=== PATIENT | female | born 1980 | race Asian ===

== ENCOUNTER 2024-10-10 11:45 | Inpatient (IN) | payer MEDICAID, SELFPAY ==
[2024-10-10] VITALS (14 sets, daily range): BP systolic 117–145; BP diastolic 73–92; PULSE 78–93; RESP 13–19; TEMP 36.2–38.1; O2SAT 97–100; BMI 28.9
--- NOTE | 2024-10-10 12:26 | PD.EDABDPN ---
ED Abdominal Pain RME/HPI General Chief Complaint: Abdominal Pain Stated complaint: SENT BY PMD R/O ACUTE CHOLECYSTITIS XTUES Time seen by provider: 10/10/24 12:16 Arrival date/time: 10/10/24 11:45 RME / HPI RME / HPI narrative: 43-year-old female patient with no significant past medical history except for gallstone, came in by private vehicle from the clinic of Dr. Sibley regarding right upper quadrant pain. Patient had recurrence of right upper quadrant pain for the last 2 days, associated with nausea. Denies any fever. Patient had ERCP done 2 months ago. Patient denies any fever. Related Data Allergies Allergy/AdvReac Type Severity Reaction Status Date / Time No Known Allergies Allergy Verified 10/10/24 11:48 Review of Systems Review of Systems Narrative Review of Systems: Review of system reviewed and within normal limits except mentioned in HPI ED Exam Narrative Physical exam: VITAL SIGNS: Reviewed. GENERAL APPEARANCE: Alert and interactive, follows commands, no acute distress, HEAD AND FACE: Non-traumatic. ENT: PERRL, pink conjunctivitis, eyelid no trauma, Mucous membrane moist. NECK: Supple, nontender, no nuchal rigidity. CHEST: No tenderness, no crepitus, no paradoxical movement, no retractions. LUNGS: Clear, well ventilated, symmetric, no rales, no wheezing, no ronchi, no stridor, good breath sounds bilaterally. HEART: Regular rate, regular rhythm, no murmur, no gallops. ABDOMEN: Soft, positive bowel sounds, nondistended, no guarding, right upper quadrant tenderness no rebound, no masses, RECTAL: Deferred. GENITAL: Deferred. NEUROLOGICAL: Gross motor function intact sensory function intact, Appropriate for age. MUSCULOSKELETAL: low back nontender, full range of motion. EXTREMITIES: Nontender, full range of motion. SKIN: Color pink, dry, no rash, no lacerations, no abrasions, no contusions. LYMPHATICS: Deferred. Course Quality Measures none Orders Category Date Time Status COVID-19 Screening Questionnaire NOW Care 10/10/24 12:30 Active Decision to Admit X1 Care 10/10/24 12:30 Completed Transfuse,blood/blood products ONCE Care 10/10/24 13:39 Active US gall bladder Stat Exams 10/10/24 12:29 Completed CBC [CBC] Stat Lab 10/10/24 13:09 Completed CMP [Comprehensive Metabolic Panel] Stat Lab 10/10/24 13:09 Completed HCG Qualitative,Urine Stat Lab 10/10/24 12:31 Ordered PT [Prothrombin Time with INR] Stat Lab 10/10/24 13:09 Completed PTT [Partial Thromboplastin Time] Stat Lab 10/10/24 13:09 Completed Type and Screen Stat Lab 10/10/24 13:38 Completed UA, C/S IF [Urinalysis, C/S if Indicated] Stat Lab 10/10/24 12:31 Ordered prbc [Red Blood Cells] Stat Lab 10/10/24 13:38 Completed Bupivacaine Mpf/Epi 0.5% [Sensorcaine-Mpf Inj 0.5% w/ Med 10/10/24 14:15 Discontinued Epi] 30 ml .ROUTE .STK-MED ONE Morphine Inj Med 10/10/24 12:29 Discontinued 4 mg IVP X1 ONE Ondansetron Inj [Zofran Inj] Med 10/10/24 12:29 Discontinued 4 mg IV X1 ONE Piper/Tazo 3.375 gm Premix [Zosyn] Med 10/10/24 12:30 Discontinued 3.375 gm in 50 ml IV X1 Vital Signs Vital signs: Vital Signs Temperature 99.3 F 10/10/24 12:19 Pulse Rate 86 10/10/24 12:19 Respiratory Rate 16 10/10/24 12:19 Blood Pressure 144/92 H 10/10/24 12:19 Pulse Oximetry (%) 100 10/10/24 12:19 Oxygen Delivery Method Room Air 10/10/24 12:19 Abdominal Pain MDM MDM Narrative MDM Narrative:: 43-year-old female patient with no significant past medical history except for gallstone, came in by private vehicle from the clinic of Dr. Sibley regarding right upper quadrant pain. Patient had recurrence of right upper quadrant pain for the last 2 days, associated with nausea. Denies any fever. Patient had ERCP done 2 months ago. Patient denies any fever. Patient was noted to have hemoglobin of 6.7 hematocrit of 22.8 CMP unremarkable total bili is normal. Ultrasound of the gallbladder showed acute calculus cholecystitis Patient was admitted by Dr. Sibley Patient data External records reviewed:: None Clinical information provided by:: patient Social determinants that could affect healthcare access:: none Patient has the following chronic illnesses:: None How is presenting disease/condition affected by chronic disease/condition?: no chronic disease Evaluation data The following diagnostics were reviewed and interpreted by me:: lab results and radiology exam(s) Lab and/or radiology exams considered but not ordered:: None Interpretation Summary: See result MDM Medications / Prescriptions Medications or Prescriptions considered but not ordered:: Left Medication administrations:: Medication Administration History Sodium Chloride (Ns) 1,000 mls @ 100 mls/hr IV .Q10H CHANG Stop: 11/09/24 16:14 Last Admin: 10/10/24 18:12 Dose: 100 mls/hr Documented By: IVA Piperacillin/Tazobactam/Dextrose (Zosyn) 3.375 gm in 50 mls @ 12.5 mls/hr IV Q8HR CHANG Stop: 10/17/24 21:59 Last Admin: 10/10/24 22:41 Dose: 12.5 mls/hr Documented By: Ketorolac Tromethamine (Ketorolac Inj 30 Mg/Ml Vial) 30 mg IVP Q6HR PRN PRN Reason: PAIN SCALE 4-6 (Moderate Stop: 10/15/24 16:08 Last Admin: 10/10/24 23:08 Dose: 30 mg Documented By: Ondansetron HCl (Ondansetron Inj 2 Mg/Ml Inj 2 Ml) 4 mg IV Q4HR PRN; Protocol PRN Reason: Nausea Stop: 11/09/24 16:08 Discontinued Medications Bupivacaine HCl/Epinephrine Bitart (Bupivacaine Mpf/Epi 0.5% 30 Ml Vial 1:200,000) Confirm Administered Dose 30 ml .ROUTE .STK-MED ONE Stop: 10/10/24 14:16 Piperacillin/Tazobactam/Dextrose (Zosyn) 3.375 gm in 50 mls @ 100 mls/hr IV X1 ONE Stop: 10/10/24 12:59 Last Infusion: 10/10/24 14:16 Dose: Infused Documented By: Admin: 10/10/24 13:41 Dose: 100 mls/hr Documented By: IVA Morphine Sulfate (Morphine Sulf Inj 10 Mg/Ml Vial) 4 mg IVP X1 ONE Stop: 10/10/24 12:30 Last Admin: 10/10/24 13:40 Dose: 4 mg Documented By: IVA Ondansetron HCl (Ondansetron Inj 2 Mg/Ml Inj 2 Ml) 4 mg IV X1 ONE; Protocol Stop: 10/10/24 12:30 Last Admin: 10/10/24 13:40 Dose: 4 mg Documented By: IV Zosyn Toradol Consultations Consultation(s) initiated? (list below): No Diagnosis Differential diagnosis abdominal pain: abdominal pain and pancreatitis Most likely diagnosis given after review of the tests above:: Acute calculus cholecystitis Admission Indicated Admission indicated?: indicated Admission Request Was there a request for admission?: Yes Admission Attestation Admission request attestation: Dr. Sibley agrees to accept the patient for admission. Disposition Plan Disposition Plan: Admit Discharge Plan Plan Patient Disposition: Admit Acute Care w/in Hospital Problem List Clinical Impression: Acute calculous cholecystitis, Anemia
--- NOTE | 2024-10-10 12:29 | XR_ITS ---
Examination: Abdomen sonogram, Limited Date and time of exam: October 10, 2024 1315 hours INDICATIONS: Epigastric pain beginning 3 days ago Technique: Real-time allen scale transabdominal sonographic images of the upper abdomen obtained. Findings: Multiple gallstones Gallbladder wall 0.4 cm with edema Common bile duct 0.7 cm Pancreatic head 2.3 cm Liver 14.5 cm no focal liver lesions Normal hepatopedal portal venous oh Patent IVC IMPRESSION: Acute calculus cholecystitis Enlarged common bile duct 0.7 cm, consider MRCP follow-up to exclude common bile duct stones or stricture
[2024-10-10 13:28] LABS: Basophils % (Auto) 0 % (0-2.5); Eosinophils # (Auto) 0.1 Thou/mm3 (0.0-0.5); Eosinophils % (Auto) 1 % (0-10); Lymphocytes # (Auto) 0.9 Thou/mm3 (1.0-4.8); Lymphocytes % (Auto) 9 % (10-50); Mean Corpuscular Volume 72 fL (80-100); Monocytes # (Auto) 0.8 Thou/mm3 (0.0-0.8); Neutrophils # (Auto) 7.7 Thou/mm3 (1.8-7.7); Neutrophils % (Auto) 80 % (37-80); Nucleated Red Blood Cell % 0 /100 WBC (0); White Blood Count 9.6 Thou/mm3 (3.6-11.0)
[2024-10-10 13:30] LABS: Hematocrit 22.7 % (36.0-46.0); Immature Granulocytes % (Auto) 1 % (0-0); Mean Corpuscular HGB Conc 29.1 g/dl (31.0-37.0); Mean Corpuscular Hemoglobin 20.9 pg (25.0-35.0); Monocytes % (Auto) 8 % (0-12); Platelet Count 216 Thou/mm3 (140-440); RDW Standard Deviation 48.2 fL (36.4-46.3); Red Blood Count 3.16 Miln/mm3 (4.00-5.20)
[2024-10-10 13:31] LABS: Hemoglobin 6.6 g/dL (12.0-16.0)
[2024-10-10] MEDS: ONDANSETRON INJ 2 MG/ML INJ 2 ML 4 MG IV (13:40)
[2024-10-10] MEDS: MORPHINE SULF INJ 10 MG/ML VIAL 4 MG IVP (13:40)
[2024-10-10 13:41] LABS: Alanine Aminotransferase 8 U/L (10-49); Albumin/Globulin Ratio 1.4 (1.2-2.2); Alkaline Phosphatase 57 U/L (46-116); Anion Gap 6 (7-16); Aspartate Amino Transferase 12 U/L (0-34); BUN/Creatinine Ratio 10 Ratio (12-20); Bilirubin,Total 1.2 mg/dL (0.3-1.2); Blood Urea Nitrogen 7 mg/dL (9-23); Calcium 8.3 mg/dL (8.3-10.6); Calcium (Corrected) 8.3 mg/dL (8.5-10.1); Carbon Dioxide 23.6 mMol/L (20.0-31.0); Chloride 104 mMol/L (98-107); Creatinine (Component) 0.7 mg/dL (0.6-1.3); Estimated Creatinine Clearance 90.4 mL/min (>60); Globulin 2.8 gm/dL (2.3-3.5); Glucose 99 mg/dL (74-106); Osmolality,Calculated 266 (275-295); Potassium 3.4 mMol/L (3.4-5.1); Sodium 134 mMol/L (136-145); Total Protein 6.8 gm/dL (5.7-8.2); eGFR > 60 See Note
[2024-10-10] MEDS: PIPER/TAZO 3.375 GM PREMIX 3.375 GM/50 ML BAG IV ×2 (13:41→22:41)
[2024-10-10 13:51] LABS: INR 1.1 (0.9-1.3); Partial Thromboplastin Time 27.8 Seconds (22.0-36.0); Prothrombin Time 11.8 Seconds (9.0-12.2)
--- NOTE | 2024-10-10 16:12 | PD.SURPROG ---
Documentation for date of: 10/10/24 Subjective Subjective Narrative: The patient was admitted through the emergency room because of acute cholecystitis. However while waiting in the emergency room she was found to have a hemoglobin of 6.6 g. Exam Vital Signs Temp Pulse Resp BP Pulse Ox O2 Del Method 99.0 F 80 16 117/73 100 Room Air 10/10/24 14:13 10/10/24 14:13 10/10/24 14:13 10/10/24 14:13 10/10/24 14:13 10/10/24 14:13 Assessment & Plan Assessment Additional comments: Impression: Acute cholecystitis with cholelithiasis Severe anemia Plan Plan: Patient will be admitted as an inpatient to the hospital and give 2 units of packed cells tonight. We shall then proceed with a laparoscopic cholecystectomy tomorrow.
[2024-10-10 16:48] LABS: Basophils % (Auto) 0 % (0-2.5); Eosinophils # (Auto) 0.1 Thou/mm3 (0.0-0.5); Eosinophils % (Auto) 1 % (0-10); Hematocrit 22.8 % (36.0-46.0); Immature Granulocytes % (Auto) 0 % (0-0); Immature Granulocytes Auto 0.02 Thou/mm3 (0.00-0.00); Lymphocytes # (Auto) 0.9 Thou/mm3 (1.0-4.8); Lymphocytes % (Auto) 10 % (10-50); Mean Corpuscular HGB Conc 29.4 g/dl (31.0-37.0); Mean Corpuscular Hemoglobin 20.7 pg (25.0-35.0); Mean Corpuscular Volume 71 fL (80-100); Monocytes # (Auto) 0.6 Thou/mm3 (0.0-0.8); Monocytes % (Auto) 7 % (0-12); Neutrophils # (Auto) 7.1 Thou/mm3 (1.8-7.7); Neutrophils % (Auto) 81 % (37-80); Nucleated Red Blood Cell % 0 /100 WBC (0); Platelet Count 217 Thou/mm3 (140-440); RDW Standard Deviation 46.9 fL (36.4-46.3); Red Blood Count 3.23 Miln/mm3 (4.00-5.20); White Blood Count 8.8 Thou/mm3 (3.6-11.0)
[2024-10-10 16:51] LABS: Hemoglobin 6.7 g/dL (12.0-16.0)
[2024-10-10] MEDS: SODIUM CHLORIDE 0.9% 1000 ML 1,000 ML 100 ML IV (18:12)
--- NOTE | 2024-10-10 18:55 | PC.NURSE ---
Pt has not arrived on the floor yet. Hand off report given to Page DEWITT.
--- NOTE | 2024-10-10 19:26 | PC.NURSE ---
Received phone report from ER Nurse Karen at 2320. Per ER Nurse, pt is ordered to have 2 units of PRBCs. Patient is currently recieving her first unit and will need the second unit when she arrives on the floor.
[2024-10-10] MEDS: KETOROLAC INJ 30 MG/ML VIAL IVP (23:08)
[2024-10-11] VITALS (16 sets, daily range): BP systolic 96–127; BP diastolic 60–82; PULSE 60–79; RESP 12–97; TEMP 36.1–37.2; O2SAT 94–100
[2024-10-11] MEDS: PIPER/TAZO 3.375 GM PREMIX 3.375 GM/50 ML BAG IV ×3 (05:28→21:29)
[2024-10-11 06:09] LABS: Collection Type, Urine Clean Catch
[2024-10-11 06:16] LABS: HCG Qualitative,Urine Negative
[2024-10-11 06:17] LABS: Basophils % (Auto) 0 % (0-2.5); Eosinophils # (Auto) 0.2 Thou/mm3 (0.0-0.5); Eosinophils % (Auto) 1 % (0-10); Hematocrit 30.2 % (36.0-46.0); Hemoglobin 9.5 g/dL (12.0-16.0); Immature Granulocytes % (Auto) 0 % (0-0); Immature Granulocytes Auto 0.04 Thou/mm3 (0.00-0.00); Lymphocytes # (Auto) 1.3 Thou/mm3 (1.0-4.8); Lymphocytes % (Auto) 11 % (10-50); Mean Corpuscular HGB Conc 31.5 g/dl (31.0-37.0); Mean Corpuscular Hemoglobin 23.3 pg (25.0-35.0); Mean Corpuscular Volume 74 fL (80-100); Monocytes # (Auto) 0.8 Thou/mm3 (0.0-0.8); Monocytes % (Auto) 7 % (0-12); Neutrophils # (Auto) 9.4 Thou/mm3 (1.8-7.7); Neutrophils % (Auto) 81 % (37-80); Nucleated Red Blood Cell % 0 /100 WBC (0); Platelet Count 217 Thou/mm3 (140-440); RDW Standard Deviation 50.5 fL (36.4-46.3); Red Blood Count 4.07 Miln/mm3 (4.00-5.20); White Blood Count 11.7 Thou/mm3 (3.6-11.0)
[2024-10-11 06:18] LABS: Bilirubin,Urine Negative (Negative); Blood,Urine Negative (Negative); Clarity,Urine Clear (Clear/Hazy); Color,Urine Lt-Yellow (Lt Yel-Yel); Culture Indicated,Urine Not Indicated; Glucose, Urine Negative (Negative); Ketones,Urine Negative (Negative); Leukocyte Esterase,Urine Negative (Negative); Nitrite,Urine Negative (Negative); PH,Urine 6.5 (5.0-7.0); Protein,Urine Negative (Neg - Trace); RBC,Urine 1 /hpf (0-3); Specific Gravity,Urine 1.008 (1.001-1.035); Squamous Epithelial Cell,Urine 2 /hpf (0-5); Urobilinogen,Urine Negative mg/dL (0.0-1.0); WBC,Urine 1 /hpf (0-5)
[2024-10-11] MEDS: SODIUM CHLORIDE 0.9% 1000 ML 1,000 ML 100 ML IV ×2 (08:56→23:48)
--- NOTE | 2024-10-11 09:57 | PD.SURPROG ---
Documentation for date of: 10/11/24 Subjective Subjective Narrative: Patient had an episode of pain last night requiring Toradol. She also had a temperature elevation Exam Vital Signs Temp Pulse Resp BP Pulse Ox O2 Del Method 98.5 F 78 17 127/82 96 Room Air 10/11/24 08:00 10/11/24 08:00 10/11/24 08:00 10/11/24 08:00 10/11/24 08:00 10/11/24 08:00 At present her vital signs are normal Routine Abdominal Exam Comments: Abdominal examination shows right upper quadrant tenderness Results Results: Laboratory Laboratory Narrative: Posttransfusion hemoglobin is 9.5. Her WBC is going up to 11.7 Assessment & Plan Assessment Additional comments: Impression: Acute calculus cholecystitis Plan Plan: Since the anemia is corrected we shall proceed with laparoscopic cholecystectomy today
--- NOTE | 2024-10-11 13:30 | SUR.PHASEI ---
pt arrived to PACU via gurney with oral airway present, breathing unlabored, dressing to abdomen clean, dry, and intact, report from Chidi DEWITT and Brad SRNA
--- NOTE | 2024-10-11 13:37 | PD.SUROPNT ---
Date of Procedure 10/11/24 Pre Op Diagnosis Acute cholecystitis with cholelithiasis Post Op Diagnosis Same with stone impacted at the neck of the gallbladder causing hydrops Procedure Laparoscopic cholecystectomy Findings Patient was found to have extensive inflammation of the gallbladder covered with omentum the gallbladder was at least 3-4 times the size of it because of the distention. Procedure Description After endotracheal anesthesia was given the patient was placed in supine position and the abdomen was prepped with chloroprep solution and draped in a sterile manner. After time out was performed I injected a few cc of of half percent Marcaine with epinephrine below the umbilicus and I made an incision for about 3 cm in length. The fascia was cleaned and Veress needle was inserted to create a pneumoperitoneum up to 15 mmHg. Then introduced a 12 mm trocar and a 10 mm camera through the fascia and I inspected the intra-abdominal organs as well as the gallbladder and the liver. Patient was found to have extremely distended gallbladder which was thickened and needed to be decompressed before grasped. Another 5 mm trocar was inserted in the epigastric region under direct vision after injecting some local anesthesia. At this time the patient was kept in reverse Trendelenburg position with the left lateral tilt. The third 5 mm trocar was inserted over the mid axillary line under direct vision and a Marcos and Hector grasper was used to hold the fundus of the gallbladder. I aspirated the gallbladder and this revealed clear bile suggesting cystic duct obstruction sometime ago. The retraction was carried out by the funeral home assistant moving the fundus of the gallbladder towards the right shoulder of the patient to create enough traction. I placed a another 5 mm trocar in the midaxillary line just lateral to the rectus muscle under direct vision. I used a fenestrated grasper to retract the neck of the gallbladder laterally towards the patient's right hip. The Calot's triangle was exposed and I achieved the critical view of safety as follows: I dissected out the fatty tissue from the hepatocystic triangle and cleared this area. I also dissected inferior and posterior to the gallbladder to identify the cystic duct and the gallbladder wall. Because of the extensive inflammation clear critical view of safety was difficult to achieve. At this time I confirmed that only 2 structures entering the gallbladder were cystic artery and the cystic duct. The common duct was seen distally but no dissection was carried out around the duct. I did not see any need for operative cholangiogram in this patient. The cystic duct was clipped doubly and then divided and cystic artery was similarly dealt with. The cystic duct was dilated obviously from stones that went into the common duct in the past. Then the gallbladder was removed from the liver bed using Harmonic alaina to control the small blood vessels as the dissection proceeded. Then the gallbladder was from the liver bed completely and delivered through the umbilical port using an Endopouch. The liver bed was coagulated with cautery to obtain satisfactory hemostasis. The trocars were pulled out from the abdominal cavity and the fascia at the umbilical incision was closed with interrupted 0 Ethibond. Subcutaneous tissues was closed with 3-0 chromic and injected a few cc of half percent Marcaine with epinephrine and the skin was closed with interrupted 4-0 Monocryl subcuticular stitches at all the trocar sites. Dressing was applied with 2 x 2 and Tegaderm. Patient tolerated the procedure well and returned to recovery room in stable condition. Anesthesia GETA Pathology / specimen Other (Gallbladder and the stones) IVF Infused 700 Estimated Blood Loss 100 Condition Stable Disposition PACU Surgeon Jameel Garcia MD Surgical Staff Operation Date: 10/11/24 13:00 Case Staff COMPUTER TECHNOLOGY TEACHER: Vasiliy Trotter RNcp bleacher operator: Flako Roberts
--- NOTE | 2024-10-11 14:10 | SUR.PHASEI ---
pt awake, alert, able to follow commands, breathing unlabored, dressing to abdomen clean, dry, and intact x4 ports, pt tolerating ice chips without difficulty swallowing or n/v, report called to Aurea DEWITT, pt transferred to room at this time.
--- NOTE | 2024-10-11 23:54 | PC.NURSE ---
accessed pt's chart to assist main RN.
[2024-10-12 04:00] VITALS: BP 131/80; PULSE 62; RESP 18; TEMP 36.4; O2SAT 95
[2024-10-12] MEDS: PIPER/TAZO 3.375 GM PREMIX 3.375 GM/50 ML BAG IV ×2 (05:32→13:54)
[2024-10-12 06:20] LABS: Alanine Aminotransferase 29 U/L (10-49); Albumin, Serum 3.8 gm/dL (3.5-5.0); Alkaline Phosphatase 67 U/L (46-116); Aspartate Amino Transferase 45 U/L (0-34); Bilirubin,Direct 0.3 mg/dL (0.0-0.3); Bilirubin,Total 0.8 mg/dL (0.3-1.2); Total Protein 6.6 gm/dL (5.7-8.2)
[2024-10-12 06:50] LABS: Basophils % (Auto) 0 % (0-2.5); Eosinophils % (Auto) 0 % (0-10); Hematocrit 28.8 % (36.0-46.0); Immature Granulocytes % (Auto) 0 % (0-0); Immature Granulocytes Auto 0.05 Thou/mm3 (0.00-0.00); Lymphocytes # (Auto) 0.6 Thou/mm3 (1.0-4.8); Lymphocytes % (Auto) 5 % (10-50); Mean Corpuscular HGB Conc 30.6 g/dl (31.0-37.0); Mean Corpuscular Hemoglobin 23.1 pg (25.0-35.0); Mean Corpuscular Volume 76 fL (80-100); Monocytes # (Auto) 0.3 Thou/mm3 (0.0-0.8); Monocytes % (Auto) 2 % (0-12); Neutrophils % (Auto) 93 % (37-80); Nucleated Red Blood Cell % 0 /100 WBC (0); Platelet Count 222 Thou/mm3 (140-440); RDW Standard Deviation 51.8 fL (36.4-46.3); Red Blood Count 3.81 Miln/mm3 (4.00-5.20); White Blood Count 12.9 Thou/mm3 (3.6-11.0)
[2024-10-12 07:16] LABS: Hemoglobin 8.8 g/dL (12.0-16.0)
[2024-10-12 08:00] VITALS: BP 133/83; PULSE 72; RESP 18; TEMP 36.2; O2SAT 96
[2024-10-12 09:10] VITALS: PULSE 58; RESP 18; RESP 98; O2SAT 98
[2024-10-12 12:00] VITALS: BP 125/82; PULSE 79; RESP 16; TEMP 36.3; O2SAT 100
--- NOTE | 2024-10-12 12:10 | PD.SURPROG ---
Documentation for date of: 10/12/24 Subjective Subjective Narrative: The patient is feeling better after surgery yesterday. She is tolerating clear liquids and she is not requesting any pain medication. Exam Vital Signs Temp Pulse Resp BP Pulse Ox O2 Del Method O2 Flow Rate 97.1 F 58 L 18 133/83 H 98 Room Air 3 10/12/24 08:00 10/12/24 09:10 10/12/24 09:10 10/12/24 08:00 10/12/24 09:10 10/12/24 08:00 10/11/24 14:00 Patient's vital signs are normal Routine Abdominal Exam Comments: Abdominal examination is negative. She is passing flatus Results Results: Laboratory Laboratory Narrative: Laboratory results show mild leukocytosis. Assessment & Plan Assessment Additional comments: Impression: Stable postoperative course following laparoscopic cholecystectomy for acute cholecystitis Plan Plan: We shall discharge the patient today and follow her up in my office in 10 days. As far as returning to work I have left to the patient even next week. Since she is anemic she will be given iron. Procedures Procedures Laparoscopic cholecystectomy
--- NOTE | 2024-10-12 13:11 | ESDS_ITS ---
RE: KEN AMES : 1980 DATE OF ADMISSION: 10/10/2024 DATE OF ADMISSION: 10/10/2024 DATE OF DISCHARGE: 10/12/2024 FINAL DIAGNOSES: 1. Acute calculus cholecystitis. 2. Severe anemia. PROCEDURE DONE: 2 units of packed cell transfusion, laparoscopic cholecystectomy and antibiotic therapy. REASON FOR ADMISSION: This patient was seen in my office because of severe acute cholecystitis causing right upper quadrant tenderness and pain. She was therefore admitted through the emergency room and was found to have a hemoglobin of 6.6 during the preoperative laboratory workup. Even though she was aware of anemic status in the past, she said it was around 9 g. However, because of the acute anemia, the patient was given 2 units of blood on the day of admission on 10/10/2024. Then, her blood count came up to 9.5 and she was taken to the operating room on 10/11/2024 and underwent laparoscopic cholecystectomy. The patient was found to have extensive inflammation and acute cholecystitis with hydrops of the gallbladder. Her postoperative course was uneventful and she was discharged on the first postoperative day. At that time, she was given [place] 15 tablets, 1 p.o. q. 4 hours p.r.n. for pain. She was also given ferrous sulfate 325 mg p.o. t.i.d. for 3 months. I told the patient that the anemia has not been worked up. The patient will definitely need upper GI and possibly a colonoscope to rule out any blood loss. She has not seen any coordinate measuring equipment operator and it is difficult to get the coordinate measuring equipment operator on the weekend here. Moreover, she is not acutely bleeding and causing anemia. This anemia needs to be worked up and I emphasized the importance to the patient and . She will be seen in my office next Monday. At the time of discharge, she was tolerating a regular diet and is pain-free. DT: 12:24:54 TT: 13:09:00 Ref: [id number] - TID: [id number]
[2024-10-12 14:42] VITALS: BP 127/78; PULSE 79; RESP 17; TEMP 37.2; O2SAT 99
== END 2024-10-12 15:05 | disposition home or self-care (01) | DRG 263 ==
LOC: SERX 14:45 → SERHOLD 16:31 → S3SX 10-11 06:47
PROVIDERS: Nurse Practitioner Family; Admitting Provider Surgery; Emergency Provider Emergency Medicine; PCP Internal Medicine Pulmonary Disease; Visit Provider Surgery
PROC: 0FT44ZZ Resection of Gallbladder, Percutaneous Endoscopic Approach (ICD-10-PCS; CPT 47562; principal; 2024-10-11 12:45)
DX: K80.00 Calculus of gallbladder with acute cholecystitis without obstruction (principal); D64.9 Anemia, unspecified; K82.1 Hydrops of gallbladder
CPT/HCPCS: 36415; 36430; 76705; 80053; 80076; 81001; 81025; 85025; 85610; 85730; 86850; 86900; 86901; 86923; 87400; 87811; 96365; 96375; 99285; A4217; A4649; J1885; J2250; J2270; J2405; J2543; J2704; J3010; J3490; J7030; P9016